=== PATIENT | male | born 1990 | race Caucasian/White ===

== ENCOUNTER 2018-04-12 01:35 | Emergency (ER) | payer OTHER ==
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
== END 2018-04-12 02:26 | disposition home or self-care (01) ==
LOC: VM.ED 01:35
DX: S50.11XA Contusion of right forearm, initial encounter (principal); Y99.0 Civilian activity done for income or pay; X58.XXXA Exposure to other specified factors, initial encounter
CPT/HCPCS: 99282